=== PATIENT | male | born 1965 | race American Indian/Alaskan Native ===

== ENCOUNTER 2016-11-14 15:20 | Inpatient (IN) | payer BC ==
--- NOTE | 2016-11-14 16:50 | Cat Scan Report ---
FINAL REPORT PROCEDURE: CT HEAD/BRAIN WO CON TECHNIQUE: Computerized tomography of the head was performed without contrast material. HISTORY: neuro deficits \T\lt; 6hrs or sx present upon awakening COMPARISON: Head CT dated January 14, 2015 FINDINGS: The visualized portions of the paranasal sinuses are clear. Mastoid air cells are clear. There is no calvarial fracture. There is no hydrocephalus. No acute intracranial hemorrhage or mass effect is seen. There is no evidence of acute CVA. IMPRESSION: No abnormalities are seen.
[2016-11-14 17:14] LABS: Basophils % (Auto) 0.5 % (0.0-1.8); Eosinophils % (Auto) 0.6 % (0.0-4.3); Hematocrit 41.8 % (35.5-45.6); Hemoglobin 13.6 gm/dl (11.8-15.2); Mean Corpuscular HGB Conc 33 % (32-34); Mean Corpuscular Hemoglobin 31 pg (28-32); Mean Corpuscular Volume 94 fl (84-94); Platelet Count 160 K/mm3 (140-440); Red Blood Count 4.44 M/mm3 (3.65-5.03); Red Cell Distribution Width 13.5 % (13.2-15.2); White Blood Count 8.6 K/mm3 (4.5-11.0)
[2016-11-14 17:26] LABS: INR 1.03 (0.87-1.13)
[2016-11-14 17:27] LABS: Partial Thromboplastin Time 26.4 Sec. (24.2-36.6)
[2016-11-14 17:31] LABS: Anion Gap 17 mmol/L; Blood Urea Nitrogen 15 mg/dL (9-20); Calcium 9.1 mg/dL (8.4-10.2); Carbon Dioxide 26 mmol/L (22-30); Glucose 110 mg/dL (75-100); Potassium 4.4 mmol/L (3.6-5.0); Sodium 140 mmol/L (137-145)
[2016-11-14] MEDS ORDERED: TYLENOL ONE (20:31)
[2016-11-14] MEDS ORDERED: TYLENOL PO ONE (20:37)
[2016-11-14] MEDS ORDERED: ASPIRIN PO ONE (22:08)
--- NOTE | 2016-11-14 22:12 | Emergency Department Report ---
HPI - General Chief Complaint: Neuro Symptoms/Deficit Time Seen by Provider: 11/14/16 21:47 - HPI HPI: Chapa 22 The patient is a 81-year-old male presenting with a chief complaint of right- sided numbness and dysarthria. The patient states he awakened this morning at approximately 05:30 in his usual state of health. Patient states at approximately 10:00 this morning he developed numbness of the right face, right upper extremity and right lower extremity associated with dysarthria. Symptoms last approximately 10 minutes and then resolved. The patient states he's had 3- 4 episodes the same symptoms today. Patient denies dysphagia. Patient does admit to a headache. Location: [see above] Duration: [see above] Quality: Numbness Severity: Moderate Modifying factors: [see above] Context: [see above] Mode of transportation: [not driving] ED Past Medical Hx - Past Medical History Previous Medical History?: Yes Hx Hypertension: Yes Hx CVA: Yes (TIA) - Surgical History Past Surgical History?: Yes Additional Surgical History: Right wrist, Hernia repair - Family History Family history: no significant - Social History Smoking Status: Never Smoker Substance Use Type: None, Prescribed - Medications Home Medications: Home Medications Medication Instructions Recorded Confirmed Last Taken Type Lisinopril 0 mg PO DAILY 01/14/15 01/14/15 Unknown History HCTZ 0 10/10/15 Unknown History Famotidine [Pepcid] 20 mg PO BID #60 tablet 10/11/15 Unknown Rx Ibuprofen [Motrin] 400 mg PO Q8H PRN #30 tablet 10/11/15 Unknown Rx ED Review of Systems ROS: Stated complaint: NUMBNESS/TINGLING RT ARM/ HEADACHE Other details as noted in HPI Comment: All other systems reviewed and negative Constitutional: denies: chills, fever Eyes: denies: eye pain, eye discharge, vision change ENT: denies: ear pain, throat pain Respiratory: denies: cough, shortness of breath, wheezing Cardiovascular: denies: chest pain, palpitations Endocrine: no symptoms reported Gastrointestinal: denies: abdominal pain, nausea, diarrhea Genitourinary: denies: urgency, dysuria Musculoskeletal: denies: back pain, joint swelling, arthralgia Skin: denies: rash, lesions Neurological: headache, weakness, numbness Psychiatric: denies: anxiety, depression Hematological/Lymphatic: denies: easy bleeding, easy bruising Physical Exam - Physical Exam Vital Signs: Vital Signs 11/14/16 11/14/16 11/14/16 16:21 20:22 20:38 Temperature 98.7 F 97.7 F Pulse Rate 54 L 51 L Respiratory 20 18 18 Rate Blood Pressure 127/90 158/103 Blood Pressure [Left] O2 Sat by Pulse 98 99 Oximetry 11/14/16 11/14/16 21:13 21:14 Temperature Pulse Rate 50 L Respiratory 16 16 Rate Blood Pressure Blood Pressure 172/117 [Left] O2 Sat by Pulse 100 Oximetry Physical Exam: GENERAL: The patient is well-developed well-nourished male lying on stretcher not appearing to be in acute distress. [] HEENT: Normocephalic. Atraumatic. Extraocular motions are intact. Patient has moist mucous membranes. NECK: Supple. Trachea midline CHEST/LUNGS: Clear to auscultation. There is no respiratory distress noted. HEART/CARDIOVASCULAR: Regular. There is no tachycardia. There is no gallop rub or murmur. ABDOMEN: Abdomen is soft, nontender. Patient has normal bowel sounds. There is no abdominal distention. SKIN: There is no rash. There is no edema. There is no diaphoresis. NEURO: The patient is awake, alert, and oriented. The patient is cooperative. The patient has no focal neurologic deficits. The patient has normal speech. Cranial nerves II through XII grossly intact, no drift, video production assistant 5+5 bilaterally. Normal sensation throughout MUSCULOSKELETAL: There is no evidence of acute injury. ED Course Vital Signs 11/14/16 11/14/16 11/14/16 16:21 20:22 20:38 Temperature 98.7 F 97.7 F Pulse Rate 54 L 51 L Respiratory 20 18 18 Rate Blood Pressure 127/90 158/103 Blood Pressure [Left] O2 Sat by Pulse 98 99 Oximetry 11/14/16 11/14/16 21:13 21:14 Temperature Pulse Rate 50 L Respiratory 16 16 Rate Blood Pressure Blood Pressure 172/117 [Left] O2 Sat by Pulse 100 Oximetry ED Medical Decision Making - Lab Data Result diagrams: 11/14/16 16:59 11/14/16 16:59 Laboratory Tests 11/14/16 11/14/16 11/14/16 16:59 16:59 16:59 WBC 8.6 RBC 4.44 Hgb 13.6 Hct 41.8 MCV 94 MCH 31 MCHC 33 RDW 13.5 Plt Count 160 Lymph % (Auto) 25.3 Upson % (Auto) 8.7 H Eos % (Auto) 0.6 Baso % (Auto) 0.5 Lymph # 2.2 Upson # 0.8 Eos # 0.1 Baso # 0.0 Seg Neutrophils % 64.9 Seg Neutrophils # 5.6 PT 13.4 INR 1.03 APTT 26.4 Thrombin Time Sodium 140 Potassium 4.4 Chloride 101.0 Carbon Dioxide 26 Anion Gap 17 BUN 15 Creatinine 1.0 Estimated GFR > 60 BUN/Creatinine Ratio 15.00 Glucose 110 H Calcium 9.1 Troponin T < 0.010 11/14/16 16:59 WBC RBC Hgb Hct MCV MCH MCHC RDW Plt Count Lymph % (Auto) Upson % (Auto) Eos % (Auto) Baso % (Auto) Lymph # Upson # Eos # Baso # Seg Neutrophils % Seg Neutrophils # PT INR APTT Thrombin Time 17.2 Sodium Potassium Chloride Carbon Dioxide Anion Gap BUN Creatinine Estimated GFR BUN/Creatinine Ratio Glucose Calcium Troponin T - EKG Data -: EKG Interpreted by Or EKG shows normal: sinus rhythm Rate: bradycardia - EKG Data When compared to previous EKG there are: no significant change (86 bpm) Interpretation: unchanged when compared t (10/11/2015) - Differential Diagnosis TIA, CVA, complex migraine Critical care attestation.: If time is entered above; I have spent that time in minutes in the direct care of this critically ill patient, excluding procedure time. ED Disposition Clinical Impression: Headache, TIA (transient ischemic attack) Disposition: OP ADMITTED IP TO THIS HOSP Is pt being admited?: Yes Does the pt Need Aspirin: Yes Condition: Fair Referrals: SUZANNE BONNER MD [Primary Care Provider] - 3-5 Days Time of Disposition: 22:13 (hospitalist paged)
[2016-11-14] MEDS ORDERED: ZOFRAN IV PRN (23:50)
[2016-11-14] MEDS ORDERED: DULCOLAX PR PRN (23:50)
[2016-11-14] MEDS ORDERED: APRESOLINE IV PRN (23:50)
[2016-11-14] MEDS ORDERED: TYLENOL PO PRN (23:50)
[2016-11-14] MEDS ORDERED: SODIUM CHLORIDE FLUSH SYRINGE 10 ML IV PRN (23:50)
[2016-11-14] MEDS ORDERED: MILK OF MAGNESIA PO PRN (23:50)
--- NOTE | 2016-11-14 23:53 | History and Physical Report ---
History of Present Illness Date of examination: 11/14/16 History of present illness: 51-year-old man with a history of hypertension comes emergency room after developing numbness on the right side of the face and also on the right side of the body, symptoms started today and have improved significantly. Also complained of slurred speech which has resolved Patient denies chest pain, palpitation, shortness of breath, cough, abdominal pain, hematochezia, dysuria, frequency, focal weakness, fever chills, polydipsia polyuria, hot or cold intolerance, easy bruisability, or rash or bleeding from mucosal membrane, rhinorrhea, epistaxis, earache, tinnitus, blurry vision, eye discharge, anxiety, depression. Other review of systems negative PAST SURGICAL HISTORY:Wrist surgery SOCIAL HISTORY: Denies alcohol, tobacco, drugs FAMILY HISTORY:Hypertension Medications and Allergies Allergies Allergy/AdvReac Type Severity Reaction Status Date / Time No Known Allergies Allergy Unverified 01/14/15 00:58 Home Medications Medication Instructions Recorded Confirmed Last Taken Type Lisinopril/Hydrochlorothiazide 1 tab PO QDAY 11/14/16 11/14/16 11/14/16 History [Zestoretic 20-12.5 mg] Exam - Physical Exam Narrative exam: Gen. appearance: Patient lying in bed, no apparent distress HEENT: Normocephalic, atraumatic, pupils equally round and reactive to light, extraocular movement intact, and no sclericterus,. No JVD or thyromegaly or nodule,neck supple, no carotid bruit ,mucous membranes moist, no exudate or erythema Heart: S1, S2, regular rate and rhythm Lungs: Clear to auscultation bilaterally, breathing comfortable Abdomen: Positive bowel sounds, nontender, nondistended, no organomegaly Extremity: No edema, cyanosis, clubbing Skin: No rash, nodules, warm, dry Neuro: Oriented 3, cranial nerves II-12 intact, speech is fluent, motor and sensory intact - Constitutional Vitals: Temp Pulse Resp BP Pulse Ox 97.7 F 50 L 16 172/117 100 11/14/16 20:22 11/14/16 21:13 11/14/16 21:14 11/14/16 21:13 11/14/16 21:13 Results - Labs CBC & Chem 7: 11/14/16 16:59 11/14/16 16:59 Labs: Abnormal lab results 11/14/16 11/14/16 Range/Units 16:59 16:59 [place] % (Auto) 8.7 H (0.0-7.3) % Glucose 110 H (75-100) mg/dL - Imaging and Cardiology EKG: image reviewed CT Scan - head: report reviewed Assessment and Plan TIA Hypertension Admit to medicine Obtain MRI of the head, echo, carotid Doppler Start aspirin, IV hydralazine as needed for blood pressure control Consult neurology, PT Do neurochecks, swallow screen, DVT prophylaxis
--- NOTE | 2016-11-15 02:04 | Admit Criteria Form ---
Admission Criteria Documentation: TRANSIENT ISCHEMIC ATTACK (TIA) Clinical Indications for Admission to Inpatient Care (Place 'X' for any and all applicable criteria): Admission is indicated for ANY ONE of the following(1)(2)(3)(4)(5): [ ]I. Immediate inpatient procedure is needed (eg, endarterectomy). [X ]II. Inpatient admission required rather than observation care (Also use Transient Ischemic Attack (TIA): Observation Care Criteria as appropriate) because of ANY ONE of the following: [ X]a) Focal neurologic signs or symptoms persist or recurring [ ]b) Cardiac arrhythmias of immediate concern [ ]c) Clinically significant cardiac disorder identified that requires inpatient care (eg, severe valvular disease, atrial myxoma, cardiomyopathy) [ ]d) Hypertension requiring inpatient treatment [ ]e) Parenteral anticoagulation required (eg, alternative forms of anticoagulation not appropriate or not feasible) as indicated by ALL of the following(13): [ ]i) Temporary subtherapeutic anticoagulation unacceptable because of high risk of short-term venous or arterial thromboembolism due to ANY ONE of the following(14)(15)(16): [ ]1) Atrial fibrillation suspected as etiology of TIA(17)(18)(19)(20)(21) [ ]2) Venous thromboembolism within past 12 months [ ]3) Underlying malignancy [ ]4) Patient with mechanical cardiac valve(22)( 23) [ ]5) Underlying hypercoagulable state (eg, protein C or protein S deficiency antithrombin deficiency, antiphospholipid antibodies) [ ]6) Patient at temporary high risk of thromboembolism (eg, status post orthopedic surgery) [ ]ii) Contraindications to outpatient use of "bridging" agent or alternative oral anticoagulant[B] as indicated by ALL of the following: [ ]1) Contraindication to outpatient use of low- molecular-weight heparin as "bridging" agent as indicated by ANY ONE of the following(15): [ ]A. Documented current or history of heparin-induced thrombocytopenia(24) [ ]B. Severe thrombocytopenia (eg, platelet count less than 50,000/mm3 (96x802/L) [ ]C. Documented allergy to heparin, low- molecular-weight heparin, or pork products [ ]D. Renal failure (creatinine clearance less than 30 mL/min/1.73m2 (0.50mL/sec/1.73m2) or on dialysis) [ ]E. Inability to manage self-injection ( eg, by patient, caregiver, or visiting nurse) [ ]2) Contraindication to outpatient use of fondaparinux as "bridging" agent as indicated by ANY ONE of the following(25)(26 )(27)(28): [ ]A. Severe thrombocytopenia (eg, platelet count less than 50,000/mm3 (50 x109/L)) [ ]B.Hypersensitivity to fondaparinux, related drugs, or product components [ ]C.Renal failure (creatinine clearance less than 30 mL/min/1.73m2 (0.50mL/sec/1.73m2) or on dialysis) [ ]D.Inability to manage self-injection ( eg, by patient, caregiver, or visiting nurse [ ]3. Oral direct thrombin inhibitor (eg, dabigatran) or oral coagulation factor Xa inhibitor (eg, rivaroxaban, apixaban) not appropriate as oral anticoagulation (eg, indication not appropriate) or contraindicated (eg, hypersensitivity, creatinine clearance less than 15 mL/min/1.73m2 ( 0.25 mL/sec/1.73m2) or on dialysis). [ ]f) Continuous IV infusion of anticoagulant, platelet inhibitor, vasoactive or antiarrhythmia(18)(19) [ ]g) Other condition, treatment, or monitoring requiring inpatient admission [ ]III. Contraindications and/or Inappropriate clinical situations for Observational Care in patients with Transient Ischemic Attack (TIA), when ANY ONE of the following is required: [ ]a) Patient with persistent or severe neurological deficit 24 [ ]b) Patient with acute CVA or other identified pathology should be admitted to inpatient for further care 25 [ ]IV. General contraindications and/or Inappropriate clinical situations for Observational Care in patients with Transient Ischemic Attack (TIA), when ANY ONE of the following is required: [ ]a) Prediction of prolongation of LOS based on ANY ONE of the following may be considered as a contraindication for observational care 2, 3, 4, 5, 6, 7, 8, 9, 10, 11 [ ]i) Age > 65 yrs. [ ]ii) Patient arriving by ambulance [ ]iii) Patient with high acuity [ ]iv) Patient requiring vital sign monitoring [ ]v) Patient on IV medication [ ]b) Systolic blood pressures 180mmHg 3,12 [ ]c) Patient with altered mental status including delirium and other alteration of consciousness, (3) [ ]d) Patient whose discharge disposition will be to a [facility] home or rehabilitation home should not be managed in Emergency Department Observation Unit. CMS rule requires 3 days hospital stay before such placement.3,13 [ ]e) Patient with failure to thrive due to broad array of etiologies 3,16,17 [ ]f) Inability to ambulate 3,14 Extended stay beyond goal length of stay may be needed for(4)(30)(32): [ ]a) Parenteral anticoagulation required [ ]b) Dangerous arrhythmia [ ]c) Cardiac valvular disorder, atrial myxoma, cardiomyopathy [ ]d) Uncontrolled severe hypertension [ ]e) Severe carotid stenosis [ ]f) Active comorbidities (eg, heart failure) [ ]g) Extracranial vertebrobasilar disease(29) [ ]h) Clinical evolution of TIA into cerebrovascular accident (stroke) The original [email or web address] content created by [email or web address] has been revised. The portions of thecontent which have been revised are identified through the use of italic text or in bold, and [facility] has neither reviewed nor approved the modified material. All other unmodified content is copyright [employer] includes the [facility] [employer]. Please see references footnoted in the original [employer] [facility] the [facility] edition 2016 Admission Criteria Met: Yes
--- NOTE | 2016-11-15 09:15 | Magnetic Resonance Report ---
MRI OF THE BRAIN WITHOUT CONTRAST: HISTORY: CVA PROCEDURE: Multiplanar, multisequence MR imaging of the brain without IV contrast was performed. FINDINGS: The brain parenchyma signal intensity and its perales white interface are within normal limits on all sequences. No evidence for acute ischemia, hemorrhage or mass. No chronic infarct or extra-axial fluid collection. The midline structures are central. The basal cisterns are patent. Normal ventricular size. The orbital cavities and sella turcica demonstrate no abnormality. The visualized paranasal sinuses and mastoid air cells are well aerated. IMPRESSION: Unremarkable non-enhanced MRI of the brain. No significant change since 01/14/15.
[2016-11-15] MEDS ORDERED: LOVENOX SUB-Q SCH (10:00)
[2016-11-15] MEDS ORDERED: ASPIRIN PO SCH (10:00)
--- NOTE | 2016-11-15 10:32 | Discharge Summary ---
Providers - Providers Date of Admission: 11/14/16 23:50 Date of discharge: 11/15/16 Attending physician: GLENDY YAÑEZ 11/15/16 01:18 Consult to Physician [CONS] Routine Consulting Provider: SUSHANT PICKETT Reason For Exam: thigh abscess Notified:: clerk secretary pl call Primary care physician: SUZANNE BONNER Hospitalization Condition: Stable Hospital course: Pt is 51 yo man with htn who presented with headaches, right sided numbness which resolved. He was diagnosis with TIA. He seen neurologist Dr. Sushant Pickett. - NO tia or cva, symptoms related to migraines. - HTN - new diagnosis of dyslipidemia Disposition: DISCHARGED TO HOME OR SELFCARE Time spent for discharge: 32 minutes Core Measure Documentation - Palliative Care Palliative Care/ Comfort Measures: Not Applicable - Core Measures Any of the following diagnoses?: none - VTE Discharge Requirements Deep Vein Thrombosis/Pulmonary Embolism Present on Admission: No Has pt received <5 days of overlap therapy or INR<2.0: No Anticoagulant overlap therapy prescribed at discharge: No Contraindication No Overlap Therapy order at DC: Not Indicated Exam - Physical Exam Narrative exam: GEN: WDWN, NAD, AWAKE, ALERT, ORIENTATED x 3 HEENT: NCAT, PERRL, EOMI, OP CLEAR NECK: SUPPLE, NO THYROMEGALY, NO JVD, NO LAD CVS: RRR, NORMAL S1S2 LUNGS/CHEST: CTA B, NORMAL CHEST EXPANSION B, GOOD AIR ENTRY B ABD: SOFT NTND, GBS, NO REBOUND OR GUARDING EXT/SKIN: NO SIGNIFICANT EDEMA OR RASH MSK: FROM X 4 EXTREMITIES NEURO: CN 2-12 GROSSLY INTACT, NO FOCAL DEFICITS PSY: CALM - Constitutional Vitals: Temp Pulse Resp BP Pulse Ox 98.4 F 66 18 156/103 97 11/15/16 09:32 11/15/16 09:32 11/15/16 09:32 11/15/16 09:32 11/15/16 09:32 Plan Activity: other (no strenous activites until cleared by PCP. ) Diet: low salt Follow up with: SUZANNE BONNER MD [Primary Care Provider] - 3-5 Days Prescriptions: Simvastatin [Zocor TAB] 20 mg PO QHS #30 tablet Esomeprazole Magnesium [NexIUM] 20 mg PO QDAY #30 cap Ibuprofen [Motrin 800 MG tab] 800 mg PO Q8HR PRN #30 tablet PRN Reason: Headache Lisinopril/Hydrochlorothiazide [Zestoretic 20-12.5 mg] 1 tab PO QDAY #30 tablet methylPREDNISolone [Medrol Dose Yasir] 1 dose PO DAILY #1 pack
--- NOTE | 2016-11-15 11:03 | Consultation ---
History of Present Illness Consult date: 11/15/16 Requesting physician: GLENDY YAÑEZ Reason for Consult: TIA Chief complaint: R sided numbness/tingling History of present illness: 51 YO M Hx reported TIA but neg prior imaging w/u and HTN who p/w identical recurrent sx to prior Dx TIA. On 11/14 @ 10 AM he noted R facial tingling and numbness that progressed to involve the R face and arm arm over 15-20 mins. Sx gradually resolved but then he developed a holocranial pulsatile GÓMEZ assoc w/ photophobia. Duration of pain is constant waxing and waning. Pain is worsened by activity and and relieved by rest. There are no clear temporal factors. Severity is such to limit ability to function comfortably. Past History Past Medical History: hypertension, other (? TIA) Past Surgical History: No surgical history Social history: , lives with family. denies: smoking, alcohol abuse, prescription drug abuse, IV drug use Family history: hypertension Medications and Allergies Allergies Allergy/AdvReac Type Severity Reaction Status Date / Time No Known Allergies Allergy Unverified 01/14/15 00:58 Home Medications Medication Instructions Recorded Confirmed Last Taken Type Esomeprazole Magnesium [NexIUM] 20 mg PO QDAY #30 cap 11/15/16 Unknown Rx Ibuprofen [Motrin 800 MG tab] 800 mg PO Q8HR PRN #30 tablet 11/15/16 Unknown Rx Lisinopril/Hydrochlorothiazide 1 tab PO QDAY #30 tablet 11/15/16 Unknown Rx [Zestoretic 20-12.5 mg] Simvastatin [Zocor TAB] 20 mg PO QHS #30 tablet 11/15/16 Unknown Rx methylPREDNISolone [Medrol Dose 1 dose PO DAILY #1 pack 11/15/16 Unknown Rx Yasir] Active Meds: Active Medications Acetaminophen (Tylenol) 650 mg PO Q4H PRN PRN Reason: Pain, Mild (1-3) Last Admin: 11/15/16 10:17 Dose: 650 mg Acetaminophen/Butalbital/Caffeine (Fioricet) 2 tab PO Q4H PRN PRN Reason: Headache Aspirin (Aspirin) 325 mg PO QDAY YEYO Last Admin: 11/15/16 10:17 Dose: 325 mg Bisacodyl (Dulcolax) 10 mg NE QDAY PRN PRN Reason: Constipation Dexamethasone (Decadron) 8 mg IV ONCE ONE Stop: 11/15/16 10:53 Enoxaparin Sodium (Lovenox) 40 mg SUB-Q QDAY YEYO Last Admin: 11/15/16 10:18 Dose: 40 mg Hydralazine HCl (Apresoline) 5 mg IV Q6H PRN PRN Reason: Keep SBP between 160-185 mm Hg Ketorolac Tromethamine (Toradol) 30 mg IV ONCE ONE Stop: 11/15/16 10:54 Magnesium Hydroxide (Milk Of Magnesia) 30 ml PO Q4H PRN PRN Reason: Constipation Ondansetron HCl (Zofran) 4 mg IV Q8H PRN PRN Reason: N/V unrelieved by Reglan Simvastatin (Zocor) 20 mg PO QHS [facility] Sodium Chloride (Sodium Chloride Flush Syringe 10 Ml) 10 ml IV PRN PRN PRN Reason: LINE FLUSH Review of Systems All systems: negative Neurological: parathesias, numbness, tingling, headaches, no seizures, no syncope, no ataxia, no aphasia, no change in speech, no change in mentation, no confusion, no changes in smell/taste, no balance difficulties, no gait dysfunction, no motor disturbance, no sensory deficit, no loss of vision, no paralysis Physical Examination - Vital Signs Vital Signs: Vital Signs Temp Pulse Resp BP Pulse Ox 98.7 F 54 L 20 127/90 98 11/14/16 16:21 11/14/16 16:21 11/14/16 16:21 11/14/16 16:21 11/14/16 16:21 - Constitutional General appearance: comfortable - EENT EENT: Present: ATNC, PERRL, mucous membranes moist, hearing intact, vision intact - Respiratory Respiratory: Present: chest non-tender, normal breath sounds, no respiratory distress - Cardiovascular Cardiovascular: Present: regular rate Extremities: Present: no peripheral edema bilatateraly, no clubbing, cyanosis, no inflammation, no ischemia or petechiae - Gastrointestinal Gastrointestinal: Present: normoactive bowel sounds, soft, non-distended - Integumentary Integumentary: Present: normal - Neurologic Cranial nerve examination: PERRL, EOMI, VFF, V1/V2/V3 grossly intact, face symmetric, intact, intact shoulder shrug, intact cough reflex, Intact Vestibulo- ocular r, intact corneal reflex, normal palatal elevation Speech examination: intact Sensorimotor examination: intact Detailed motor examination: full strength in all denise Motor examination - right side: 5/5: biceps, triceps, wrist flexion, wrist extension, director of collections, hip flexors, knee extensors, dorsiflexion, toe extension (EHL) , plantarflexion Motor examination - left side: 5/5: biceps, triceps, wrist flexion, wrist extension, director of collections, hip flexors, knee extensors, dorsiflexion, toe extension (EHL) , plantarflexion Detailed sensory examination: intact, light touch, temperature Reflex and gait examination: intact Reflexes: 2+: ankle, bicep, knee, tricep - Musculoskeletal Musculoskeletal: Present: no fluid collection, no pain, normal range of motion - Psychiatric Psychiatric: Present: mood/affect appropriate, cooperative Results - Laboratory Findings CBC and BMP: 11/14/16 16:59 11/14/16 16:59 Abnormal Lab Findings: Abnormal Labs 11/15/16 04:47 Cholesterol 202 H LDL Cholesterol Direct 136 H Assessment and Plan 51 YO M Hx reported TIA but neg prior imaging w/u and HTN who p/w identical recurrent sx to prior Dx TIA w/ migratory R facial and arm progressive paresthesias/hypoesthesia followed by holocranial pulsatile GÓMEZ assoc w/ photophobia. Syn suspicious for classic migraine rather than TIA. MRI Brain neg. Prior MRA Head/CDs also neg. Plan and Recommendations: 1. Neuro checks 2. YANNA Protocol-Decadron 10mg IV x 1 and cont Medrol Dose Yasir, 3. Analgesia PRN: Toradol 15-30mg IV Q4-6hrs prn and Fioricet 1-2 tabs Q4-6hrs prn 4. Reduce MAPs by 10-15% daily to achieve normotension 5. Outpt neuro follow up 6. No neurologic contraindicaton to discharge if remains stable
[2016-11-15] MEDS ORDERED: FIORICET PO PRN (12:00)
[2016-11-15] MEDS ORDERED: DECADRON IV ONE (12:00)
[2016-11-15] MEDS ORDERED: TORADOL IV ONE (12:00)
[2016-11-15 16:43] VITALS: BP 128/80
[2016-11-15] MEDS ORDERED: ZOCOR PO SCH (22:00)
--- NOTE | 2016-11-17 22:05 | Vascular Lab Report ---
CAROTID DUPLEX STUDY: RIGHT PSVEDV CCA PROX:9521 CCA DIST:5523 ICA PROX:4920 ICA MID:6432 ICA DIST:4320 ECA: 62 VERT: 36 17 LEFT PSVEDV CCA PROX:7128 CCA DIST:5726 ICA PROX:4213 ICA MID:6222 ICA DIST:5431 ECA: 62 VERT: 33 12 REASON FOR EXAM: Stroke. COMMENTS ON THE RIGHT: Doppler frequency analysis is consistent with 16 to 49 percent diameter reduction of the internal carotid artery. Minimal amount of plaque is seen. The common carotid artery is patent. The external carotid artery is patent. The vertebral artery has antegrade flow. COMMENTS ON THE LEFT: Doppler frequency analysis is consistent with 16 to 49 percent diameter reduction of the internal carotid artery. Minimal amount of plaque is seen. The common carotid artery is patent. The external carotid artery is patent. The vertebral artery has antegrade flow. IMPRESSION: Less than 50% diameter reduction in the internal carotid arteries bilaterally. Consider repeat carotid artery duplex in 12 months.
== END 2016-11-15 16:08 | disposition home or self-care (01) | DRG 103 ==
LOC: ED 15:20 → 4A 23:50
PROVIDERS: ADMIT Internal Medicine; ATTEND Internal Medicine
DX: G43.909 Migraine, unspecified, not intractable, without status migrainosus (principal); I10 Essential (primary) hypertension; E78.5 Hyperlipidemia, unspecified; Z96.631 Presence of right artificial wrist joint; Z82.49 Family history of ischemic heart disease and other diseases of the circulatory system; Z86.73 Personal history of transient ischemic attack (TIA), and cerebral infarction without residual deficits; Z79.899 Other long term (current) drug therapy
CPT/HCPCS: 36415; 70450; 70551; 80048; 80061; 84484; 85025; 85610; 85670; 85730; 93005; 93010; 93880; J0360; J1100; J1650; J1885

== ENCOUNTER 2017-05-24 18:57 | Emergency (ER) | payer OTHER, BC ==
[2017-05-24] MEDS ORDERED: TYLENOL ONE (19:24)
[2017-05-24] MEDS ORDERED: TYLENOL PO ONE (19:25)
[2017-05-24 19:27] VITALS: BP 112/70
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
== END 2017-05-24 21:21 | disposition home or self-care (01) ==
LOC: ED 18:57
DX: S16.1XXA Strain of muscle, fascia and tendon at neck level, initial encounter (principal); S39.012A Strain of muscle, fascia and tendon of lower back, initial encounter; I10 Essential (primary) hypertension; Z86.73 Personal history of transient ischemic attack (TIA), and cerebral infarction without residual deficits; V49.49XA Driver injured in collision with other motor vehicles in traffic accident, initial encounter; Y93.89 Activity, other specified; Y92.89 Other specified places as the place of occurrence of the external cause; Y99.8 Other external cause status
CPT/HCPCS: 72100; 99283

== ENCOUNTER 2017-06-04 18:12 | Emergency (ER) | payer BC, OTHER ==
[2017-06-04 19:25] VITALS: BP 139/97
[2017-06-04] MEDS ORDERED: NORCO 7.5/325 PO ONE (23:20)
[2017-06-04] MEDS ORDERED: TORADOL IM ONE (23:20)
--- NOTE | 2017-06-04 23:57 | Emergency Department Report ---
ED General Adult HPI - General Chief complaint: Rectal Pain Stated complaint: HEMORRHOIDS Source: patient Mode of arrival: Ambulatory Limitations: No Limitations - History of Present Illness Initial comments: 51 year old male presents to ED with hemorrhoidal pain during BM x2 weeks. patient states he began having pain after constant straining from constipation. patient states he has noticed scant amount of blood on toilet tissue after wiping. patient states his Last BM was last night. patient is stable, neurologically intact and in no acute distress. -: Gradual, week(s) (2) Location: buttocks Radiation: non-radiation Quality: sharp Consistency: constant Improves with: none Worsens with: other (bowel movement) Associated Symptoms: denies other symptoms - Related Data Previous Rx's Medication Instructions Recorded Last Taken Type Esomeprazole Magnesium [NexIUM] 20 mg PO QDAY #30 cap 11/15/16 Unknown Rx Ibuprofen [Motrin 800 MG tab] 800 mg PO Q8HR PRN #30 tablet 11/15/16 Unknown Rx Lisinopril/Hydrochlorothiazide 1 tab PO QDAY #30 tablet 11/15/16 Unknown Rx [Zestoretic 20-12.5 mg] Simvastatin [Zocor TAB] 20 mg PO QHS #30 tablet 11/15/16 Unknown Rx methylPREDNISolone [Medrol Dose 1 dose PO DAILY #1 pack 11/15/16 Unknown Rx Yasir] Cyclobenzaprine [Flexeril] 10 mg PO TID PRN #30 tablet 05/24/17 Unknown Rx Naproxen [Naprosyn TAB] 500 mg PO BID PRN #30 tablet 05/24/17 Unknown Rx Docusate Sodium [Colace] 100 mg PO BID PRN #14 capsule 06/05/17 Unknown Rx Hydrocortisone/Pramoxine 1 applicatio RC QAM #1 tube 06/05/17 Unknown Rx [Proctofoam-Hc Foam] Meloxicam 7.5 mg PO QAM #7 tablet 06/05/17 Unknown Rx Allergies Allergy/AdvReac Type Severity Reaction Status Date / Time No Known Allergies Allergy Unverified 01/14/15 00:58 ED Review of Systems ROS: Stated complaint: HEMORRHOIDS Other details as noted in HPI Constitutional: denies: chills, fever Eyes: denies: eye pain, eye discharge, vision change ENT: denies: ear pain, throat pain Respiratory: denies: cough, shortness of breath, wheezing Cardiovascular: denies: chest pain, palpitations Endocrine: no symptoms reported Gastrointestinal: constipation. denies: abdominal pain, nausea, diarrhea Genitourinary: denies: urgency, dysuria Musculoskeletal: denies: back pain, joint swelling, arthralgia Skin: denies: rash, lesions Neurological: denies: headache, weakness, paresthesias Psychiatric: denies: anxiety, depression Hematological/Lymphatic: denies: easy bleeding, easy bruising ED Past Medical Hx - Past Medical History Previous Medical History?: Yes Hx Hypertension: Yes Hx CVA: Yes (TIA) Hx Congestive Heart Failure: No Hx Diabetes: No Hx Asthma: No Hx COPD: No - Surgical History Past Surgical History?: Yes Additional Surgical History: Right wrist, Hernia repair - Social History Smoking Status: Never Smoker Substance Use Type: None - Medications Home Medications: Home Medications Medication Instructions Recorded Confirmed Last Taken Type Esomeprazole Magnesium [NexIUM] 20 mg PO QDAY #30 cap 11/15/16 Unknown Rx Ibuprofen [Motrin 800 MG tab] 800 mg PO Q8HR PRN #30 tablet 11/15/16 Unknown Rx Lisinopril/Hydrochlorothiazide 1 tab PO QDAY #30 tablet 11/15/16 Unknown Rx [Zestoretic 20-12.5 mg] Simvastatin [Zocor TAB] 20 mg PO QHS #30 tablet 11/15/16 Unknown Rx methylPREDNISolone [Medrol Dose 1 dose PO DAILY #1 pack 11/15/16 Unknown Rx Yasir] Cyclobenzaprine [Flexeril] 10 mg PO TID PRN #30 tablet 05/24/17 Unknown Rx Naproxen [Naprosyn TAB] 500 mg PO BID PRN #30 tablet 05/24/17 Unknown Rx Docusate Sodium [Colace] 100 mg PO BID PRN #14 capsule 06/05/17 Unknown Rx Hydrocortisone/Pramoxine 1 applicatio RC QAM #1 tube 06/05/17 Unknown Rx [Proctofoam-Hc Foam] Meloxicam 7.5 mg PO QAM #7 tablet 06/05/17 Unknown Rx ED Physical Exam - General Limitations: No Limitations General appearance: alert, in no apparent distress - Head Head exam: Present: atraumatic, normocephalic - Eye Eye exam: Present: normal appearance - ENT ENT exam: Present: mucous membranes moist - Neck Neck exam: Present: normal inspection - Respiratory Respiratory exam: Present: normal lung sounds bilaterally. Absent: respiratory distress - Cardiovascular Cardiovascular Exam: Present: regular rate, normal rhythm. Absent: systolic murmur, diastolic murmur, rubs, gallop - GI/Abdominal GI/Abdominal exam: Present: soft, normal bowel sounds. Absent: distended, tenderness, guarding - Rectal Rectal exam: Present: normal rectal tone, hemorrhoids (internal, no signs of prolapse), tenderness (inside anal canal). Absent: black stool - Extremities Exam Extremities exam: Present: normal inspection - Back Exam Back exam: Present: normal inspection - Neurological Exam Neurological exam: Present: alert, oriented X3, normal gait - Psychiatric Psychiatric exam: Present: normal affect, normal mood - Skin Skin exam: Present: warm, dry, intact, normal color. Absent: rash ED Course Vital Signs 06/04/17 19:22 Temperature 97.5 F L Pulse Rate 66 Respiratory 18 Rate Blood Pressure 139/97 O2 Sat by Pulse 97 Oximetry ED Medical Decision Making - Medical Decision Making 51 year old male presents to ED with hemorrhoidal pain x2 weeks. patient states he has pain with BM. patient will be given hemorrhoidal medications and referral to GI for further evaluation. patient is stable, neurologically intact and in no acute distress. Critical care attestation.: If time is entered above; I have spent that time in minutes in the direct care of this critically ill patient, excluding procedure time. ED Disposition Clinical Impression: Internal hemorrhoids without complication Disposition: DC-01 TO HOME OR SELFCARE Is pt being admited?: No Does the pt Need Aspirin: No Condition: Stable Instructions: Hemorrhoids (ED) Additional Instructions: Please use OTC sitz bath and warm water for soaking. Please follow up with GI within 2-3 days. Prescriptions: Docusate Sodium [Colace] 100 mg PO BID PRN #14 capsule PRN Reason: Constipation Hydrocortisone/Pramoxine [Proctofoam-Hc Foam] 1 applicatio RC QAM #1 tube Meloxicam 7.5 mg PO QAM #7 tablet Referrals: VLAD LOPEZ MD [Staff Physician] - 2-3 Days TERRELL LOMAS MD [Staff Physician] - 2-3 Days ROBERTO RICH MD [Staff Physician] - 2-3 Days Forms: Work/School Release Form(ED)
== END 2017-06-05 00:25 | disposition home or self-care (01) ==
LOC: ED 18:12
DX: K64.8 Other hemorrhoids (principal); I10 Essential (primary) hypertension; Z86.73 Personal history of transient ischemic attack (TIA), and cerebral infarction without residual deficits
CPT/HCPCS: 96372; 99282; J1885

== ENCOUNTER 2017-12-01 06:35 | Emergency (ER) | payer BC ==
[2017-12-01] MEDS ORDERED: DILAUDID IV ONE (08:26)
[2017-12-01] MEDS ORDERED: ZOFRAN ODT PO ONE (08:28)
--- NOTE | 2017-12-01 08:29 | Emergency Department Report ---
ED GI Bleed HPI - General Chief complaint: Rectal Pain Stated complaint: HEMRRHOID PAIN Time Seen by Provider: 12/01/17 08:08 Source: patient, family Mode of arrival: Ambulatory Limitations: No Limitations - History of Present Illness Initial comments: This is a 52-year-old male here complaining of hemorrhoid pain with blood 4 days and using Preparation H with no relief. Patient was here in May 2017 for similar problems and was treated with hemorrhoid medication. Patient said he had to episode of bleeding and he is in bleed in on and off since then May 2018. Patient does have a primary care physician but has not followed up in a while. He has not had a colonoscopy at 50 years old. Pain is 10 out of 10 and feels sore worse with sitting and in walk-in is lying on his side. He said he did not take any medication for pain. Blood pressure is 146/107 and is on blood pressure medication which he said he took today he's asymptomatic with elevated blood pressure. He said his last BM was yesterday and it had large amount of blood that was bright red. Denies any black tarry stool. Denies any abdominal or back pain. Denies any urinary burning frequency or urgency. Denies any hematuria. Patient was here and was referred to apparatus lineman in May which she did not follow-up. Denies any fever or chills. MD complaint: blood on toilet paper, blood streaked stool, other (rectal pain) Onset/Timin -: month(s) Radiation: none Severity scale (0 -10): 10 Quality: other (sore) Consistency: intermittent Improves with: rest, other (after bowel movement) Worsens with: bowel movement Associated Symptoms: other (hard stool). denies: abdominal pain, nausea, vomiting, epistaxis, fever/chills, headaches, loss of appetite, malaise, easy bruising, rash, other bleeding, shortness of breath, syncope, weakness Treatments Prior to Arrival: topical ointment - Related Data Home Medications Medication Instructions Recorded Confirmed Last Taken Lovastatin [Altoprev] 20 mg PO QPM 12/01/17 12/01/17 11/30/17 Previous Rx's Medication Instructions Recorded Last Taken Type Lisinopril/Hydrochlorothiazide 1 tab PO QDAY #30 tablet 11/15/16 11/30/17 Rx [Zestoretic 20-12.5 mg] Acetaminophen/Codeine [Tylenol 1 tab PO Q6H PRN #12 tab 12/01/17 Unknown Rx /Codeine # 3 tab] Bisacodyl [Dulcolax suppos] 10 mg MN QDAY 2 Days #2 supp.rect 12/01/17 Unknown Rx Bisacodyl [Dulcolax] 10 mg PO DAILY PRN 2 Days #4 tab 12/01/17 Unknown Rx Docusate Sodium [Colace] 100 mg PO BID 30 Days #60 capsule 12/01/17 Unknown Rx Allergies Allergy/AdvReac Type Severity Reaction Status Date / Time No Known Allergies Allergy Unverified 01/14/15 00:58 ED Review of Systems ROS: Stated complaint: HEMRRHOID PAIN Other details as noted in HPI Comment: All other systems reviewed and negative Constitutional: no symptoms reported Eyes: denies: eye pain, vision change ENT: denies: ear pain, throat pain, epistaxis Respiratory: no symptoms reported Cardiovascular: denies: chest pain, palpitations, dyspnea on exertion, edema, syncope, paroxysmal nocturnal dyspnea Gastrointestinal: constipation, hematochezia, other (port hemorrhoids). denies : abdominal pain, nausea, vomiting, diarrhea, hematemesis, melena Genitourinary: denies: urgency, dysuria, frequency, hematuria, discharge Musculoskeletal: denies: back pain, arthralgia, myalgia Skin: denies: rash Neurological: denies: headache, numbness, paresthesias, confusion, abnormal gait , vertigo ED Past Medical Hx - Past Medical History Previous Medical History?: Yes Hx Hypertension: Yes Hx CVA: Yes (TIA) Hx Congestive Heart Failure: No Hx Diabetes: No Hx Asthma: No Hx COPD: No - Surgical History Past Surgical History?: Yes Additional Surgical History: Right wrist, Hernia repair - Family History Family history: hypertension - Social History Smoking Status: Never Smoker Substance Use Type: None - Medications Home Medications: Home Medications Medication Instructions Recorded Confirmed Last Taken Type Lisinopril/Hydrochlorothiazide 1 tab PO QDAY #30 tablet 11/15/16 12/01/17 Rx [Zestoretic 20-12.5 mg] Acetaminophen/Codeine [Tylenol 1 tab PO Q6H PRN #12 tab 12/01/17 Unknown Rx /Codeine # 3 tab] Bisacodyl [Dulcolax suppos] 10 mg MN QDAY 2 Days #2 supp.rect 12/01/17 Unknown Rx Bisacodyl [Dulcolax] 10 mg PO DAILY PRN 2 Days #4 tab 12/01/17 Unknown Rx Docusate Sodium [Colace] 100 mg PO BID 30 Days #60 capsule 12/01/17 Unknown Rx Lovastatin [Altoprev] 20 mg PO QPM 12/01/17 12/01/17 11/30/17 History ED Physical Exam - General Limitations: No Limitations General appearance: alert, in no apparent distress - Head Head exam: Present: atraumatic, normocephalic, normal inspection - Eye Eye exam: Present: normal appearance, PERRL, EOMI. Absent: periorbital swelling , periorbital tenderness Pupils: Present: normal accommodation - ENT ENT exam: Present: normal exam, normal orophraynx, mucous membranes moist, TM's normal bilaterally, normal external ear exam - Neck Neck exam: Present: normal inspection, full ROM. Absent: tenderness, meningismus, lymphadenopathy - Respiratory Respiratory exam: Present: normal lung sounds bilaterally. Absent: respiratory distress, chest wall tenderness, accessory muscle use - Cardiovascular Cardiovascular Exam: Present: regular rate, normal rhythm, normal heart sounds. Absent: systolic murmur, diastolic murmur - GI/Abdominal GI/Abdominal exam: Present: soft. Absent: distended, tenderness, guarding, rebound, rigid, normal bowel sounds, organomegaly, mass, bruit, pulsatile mass, hernia - Rectal Rectal exam: Present: normal inspection, normal rectal tone, heme (+) stool. Absent: decreased rectal tone, black stool, fecal impaction, hemorrhoids, mass, tenderness - Extremities Exam Extremities exam: Present: normal inspection, full ROM, normal capillary refill , other (no clubbing, cyanosis or edema. +2 pulses all extremities and no neurovascular compromise). Absent: tenderness, pedal edema, joint swelling, calf tenderness - Back Exam Back exam: Present: normal inspection, full ROM, other (Ambulates without any difficulties). Absent: tenderness, CVA tenderness (R), CVA tenderness (L), muscle spasm, paraspinal tenderness, vertebral tenderness, rash noted - Neurological Exam Neurological exam: Present: alert, oriented X3, normal gait - Psychiatric Psychiatric exam: Present: normal affect, normal mood - Skin Skin exam: Present: warm, dry, intact, normal color. Absent: rash ED Course Vital Signs 12/01/17 12/01/17 12/01/17 06:35 08:46 10:01 Temperature 97.7 F 97.6 F Pulse Rate 56 L 50 L Respiratory 20 18 16 Rate Blood Pressure 146/107 Blood Pressure 150/91 [Left] O2 Sat by Pulse 97 96 Oximetry - Reevaluation(s) Reevaluation #1: 12/01/17 11:42 Patient received Dilaudid 1 mg IV, Zofran 8 mg ODT and normal saline 1 L. Pain has been relieved. Patient vital signs are stable at present 12/01/17 11:43 ED Medical Decision Making - Lab Data Result diagrams: 12/01/17 08:47 12/01/17 08:47 Lab Results 12/01/17 12/01/17 12/01/17 Range/Units 08:47 08:47 08:47 WBC 5.1 (4.5-11.0) K/mm3 RBC 4.46 (3.65-5.03) M/mm3 Hgb 14.1 (11.8-15.2) gm/dl Hct 40.9 (35.5-45.6) % MCV 92 (84-94) fl MCH 32 (28-32) pg MCHC 34 (32-34) % RDW 13.3 (13.2-15.2) % Plt Count 146 (140-440) K/mm3 Lymph % (Auto) 37.1 H (13.4-35.0) % Castro % (Auto) 8.0 H (0.0-7.3) % Eos % (Auto) 2.7 (0.0-4.3) % Baso % (Auto) 1.1 (0.0-1.8) % Lymph # 1.9 (1.2-5.4) K/mm3 Castro # 0.4 (0.0-0.8) K/mm3 Eos # 0.1 (0.0-0.4) K/mm3 Baso # 0.1 (0.0-0.1) K/mm3 Seg Neutrophils % 51.1 (40.0-70.0) % Seg Neutrophils # 2.6 (1.8-7.7) K/mm3 PT 11.8 L (12.2-14.9) Sec. INR 0.83 L (0.87-1.13) APTT 28.1 (24.2-36.6) Sec. Sodium 139 (137-145) mmol/L Potassium 3.9 (3.6-5.0) mmol/L Chloride 101.7 (98-107) mmol/L Carbon Dioxide 25 (22-30) mmol/L Anion Gap 16 mmol/L BUN 15 (9-20) mg/dL Creatinine 0.8 (0.8-1.5) mg/dL Estimated GFR > 60 ml/min BUN/Creatinine Ratio 19 % Glucose 99 (75-100) mg/dL Calcium 9.0 (8.4-10.2) mg/dL Magnesium 2.00 (1.7-2.3) mg/dL Total Bilirubin 0.30 (0.1-1.2) mg/dL Direct Bilirubin < 0.2 (0-0.2) mg/dL AST 23 (5-40) units/L ALT 28 (7-56) units/L Alkaline Phosphatase 49 (35-129) units/L Ammonia (25-60) umol/L Total Protein 7.4 (6.3-8.2) g/dL Albumin 4.4 (3.9-5) g/dL Albumin/Globulin Ratio 1.5 % Urine Color (Yellow) Urine Turbidity (Clear) Urine pH (5.0-7.0) Ur Specific [place] (1.003-1.030) Urine Protein (Negative) mg/dL Urine Glucose (UA) (Negative) mg/dL Urine Ketones (Negative) mg/dL Urine Blood (Negative) Urine Nitrite (Negative) Ur Reducing Substances Urine Bilirubin (Negative) Urine Ictotest Urine Urobilinogen (<2.0) mg/dL Ur Leukocyte Esterase (Negative) Urine WBC (Auto) (0.0-6.0) /HPF Urine RBC (Auto) (0.0-6.0) /HPF U Epithel Cells (Auto) (0-13.0) /HPF Urine Mucus /HPF Blood Type Antibody Screen 12/01/17 12/01/17 12/01/17 Range/Units 08:47 08:48 10:23 WBC (4.5-11.0) K/mm3 RBC (3.65-5.03) M/mm3 Hgb (11.8-15.2) gm/dl Hct (35.5-45.6) % MCV (84-94) fl MCH (28-32) pg MCHC (32-34) % RDW (13.2-15.2) % Plt Count (140-440) K/mm3 Lymph % (Auto) (13.4-35.0) % Castro % (Auto) (0.0-7.3) % Eos % (Auto) (0.0-4.3) % Baso % (Auto) (0.0-1.8) % Lymph # (1.2-5.4) K/mm3 Castro # (0.0-0.8) K/mm3 Eos # (0.0-0.4) K/mm3 Baso # (0.0-0.1) K/mm3 Seg Neutrophils % (40.0-70.0) % Seg Neutrophils # (1.8-7.7) K/mm3 PT (12.2-14.9) Sec. INR (0.87-1.13) APTT (24.2-36.6) Sec. Sodium (137-145) mmol/L Potassium (3.6-5.0) mmol/L Chloride (98-107) mmol/L Carbon Dioxide (22-30) mmol/L Anion Gap mmol/L BUN (9-20) mg/dL Creatinine (0.8-1.5) mg/dL Estimated GFR ml/min BUN/Creatinine Ratio % Glucose (75-100) mg/dL Calcium (8.4-10.2) mg/dL Magnesium (1.7-2.3) mg/dL Total Bilirubin (0.1-1.2) mg/dL Direct Bilirubin (0-0.2) mg/dL AST (5-40) units/L ALT (7-56) units/L Alkaline Phosphatase (35-129) units/L Ammonia 40.0 (25-60) umol/L Total Protein (6.3-8.2) g/dL Albumin (3.9-5) g/dL Albumin/Globulin Ratio % Urine Color Yellow (Yellow) Urine Turbidity Clear (Clear) Urine pH 6.0 (5.0-7.0) Ur Specific [place] 1.057 H (1.003-1.030) Urine Protein <15 mg/dl (Negative) mg/dL Urine Glucose (UA) Neg (Negative) mg/dL Urine Ketones Neg (Negative) mg/dL Urine Blood Neg (Negative) Urine Nitrite Neg (Negative) Ur Reducing Substances Not Reportable Urine Bilirubin Neg (Negative) Urine Ictotest Not Reportable Urine Urobilinogen < 2.0 (<2.0) mg/dL Ur Leukocyte Esterase Neg (Negative) Urine WBC (Auto) 2.0 (0.0-6.0) /HPF Urine RBC (Auto) 1.0 (0.0-6.0) /HPF U Epithel Cells (Auto) < 1.0 (0-13.0) /HPF Urine Mucus Few /HPF Blood Type A POSITIVE Antibody Screen Negative Stool for occult blood positive - Radiology Data Radiology results: report reviewed The skin of the abdomen and pelvis with IV contrast revealed small sliding hiatal hernia. No acute abdominal findings. Normal kidneys and bladder. Gaseous colon with stool in colon. Stool in rectum. No evidence of appendicitis or diverticulitis or bowel distention. Normal liver, spleen, pancreas and gallbladder. - Medical Decision Making ED course: Presented to the emergency room complaining of rectal pain and bleeding on and off since 05/25/2017. He was seen in the emergency room in May 2017 and was treated for hemorrhoids and referred to discern serologies which she did not follow up. Patient does have primary care physician which she does not do follow-up visit with on a regular basis. Patient is 52 years old and has not had a colonoscopy. Laboratory results are stable please refer to laboratory section for detail. CT scan of the abdomen and pelvis stable except for Constipation. CT scan and lab results. Patient voiced understanding. I also discussed with him that he needs to follow up with his primary care: Call Sunday to schedule appointment and also see referral for apparatus lineman for colonoscopy. Patient was given 1 L of normal saline and emergency room, hemoglobin and hematocrit is stable, Dilaudid 100 mg IV and Zofran 8 mg ODT which relieved his pain. Blood pressure is stabilized. Rectal exam done and no external or internal hemorrhoids on examination. No autumn bleeding the positive Hemoccult. Diagnosis and treatment plan along with follow -up explained to patient and he voiced understanding. Patient discharged home with his with prescription for Dulcolax tablets, Dulcolax suppository, Tylenol No. 3 with Colace. Patient was understanding that he needs to follow- up to get a colonoscopy to rule out any kind of abnormality in his colon due to rectal bleeding. Critical care attestation.: If time is entered above; I have spent that time in minutes in the direct care of this critically ill patient, excluding procedure time. ED Disposition Clinical Impression: Rectal bleed, Rectum pain, Elevated blood pressure reading with diagnosis of hypertension Constipation Qualifiers: Constipation type: unspecified constipation type Qualified Code(s): K59.00 - Constipation, unspecified Disposition: - TO HOME OR SELFCARE Is pt being admited?: No Does the pt Need Aspirin: No Condition: Stable Instructions: Hypertension (ED), Colonoscopy (GEN), Rectal Bleeding (ED), Constipation (ED), High Fiber Diet (ED) Additional Instructions: Please see referral to [facility] apparatus lineman for colonoscopy. Please call and Sunday to schedule an appointment Follow-up your primary care physician and call Sunday to schedule an appointment See discharge instructions on constipation and high fiber diet Increase her fluid intake to 2-3 L of water daily If you're rectal bleeding increases, dizziness, nausea vomiting and abdominal pain, Return to emergency room You were here in June and was referred to a apparatus lineman and primary care which she did not follow up with. You need a colonoscopy to rule out any abnormalities in your colon, Which could include colon cancer. Prescriptions: Acetaminophen/Codeine [Tylenol /Codeine # 3 tab] 1 tab PO Q6H PRN #12 tab PRN Reason: rectal pain Bisacodyl [Dulcolax] 10 mg PO DAILY PRN 2 Days #4 tab PRN Reason: Constipation Bisacodyl [Dulcolax suppos] 10 mg MN QDAY 2 Days #2 supp.rect Docusate Sodium [Colace] 100 mg PO BID 30 Days #60 capsule Referrals: PRIMARY CARE, [Primary Care Provider] - 12/03/17 [facility] [Provider Group] - 12/03/17 Forms: Accompanied Note, Work/School Release Form(ED)
[2017-12-01 09:09] LABS: Basophils # (Auto) 0.1 K/mm3 (0.0-0.1); Basophils % (Auto) 1.1 % (0.0-1.8); Eosinophils # (Auto) 0.1 K/mm3 (0.0-0.4); Eosinophils % (Auto) 2.7 % (0.0-4.3); Hematocrit 40.9 % (35.5-45.6); Hemoglobin 14.1 gm/dl (11.8-15.2); Lymphocytes # (Auto) 1.9 K/mm3 (1.2-5.4); Lymphocytes % (Auto) 37.1 % (13.4-35.0); Mean Corpuscular HGB Conc 34 % (32-34); Mean Corpuscular Hemoglobin 32 pg (28-32); Mean Corpuscular Volume 92 fl (84-94); Monocytes # (Auto) 0.4 K/mm3 (0.0-0.8); Platelet Count 146 K/mm3 (140-440); Red Blood Count 4.46 M/mm3 (3.65-5.03); Red Cell Distribution Width 13.3 % (13.2-15.2)
[2017-12-01 09:17] LABS: INR 0.83 (0.87-1.13); Partial Thromboplastin Time 28.1 Sec. (24.2-36.6)
[2017-12-01 09:21] LABS: Alanine Aminotransferase 28 units/L (7-56); Albumin 4.4 g/dL (3.9-5); BUN/Creatinine Ratio 19; Blood Urea Nitrogen 15 mg/dL (9-20); Hemolysis Index 3
[2017-12-01 09:22] LABS: Bilirubin,Direct < 0.2 mg/dL (0-0.2)
[2017-12-01] MEDS ORDERED: NACL 0.9% 1000 ML 1,000 ML ONE (09:31)
[2017-12-01] MEDS ORDERED: NACL 0.9% 1000 ML 1,000 ML IV ONE (09:32)
[2017-12-01] MEDS ORDERED: NACL ONE (09:36)
--- NOTE | 2017-12-01 10:09 | Cat Scan Report ---
CT scan of abdomen and pelvis with IV contrast: History: GI bleed and rectal pain. Findings: Normal lung bases. No pleural pericardial effusion. Small sliding hiatal hernia. Normal liver spleen pancreas and gallbladder. Normal adrenals kidneys and bladder. No free intraperitoneal fluid or air. No evidence of adenopathy. Normal aorta. Gaseous colon with stool in colon. Stool in rectum. No evidence of appendicitis or diverticulitis or bowel distention. Impression: Small sliding hiatal hernia. No acute abdominal findings.
[2017-12-01 11:16] LABS: Mucus,Urine FEW /HPF
[2017-12-01 11:18] LABS: Bilirubin,Urine NEG (Negative); Blood,Urine NEG (Negative); Color,Urine Yellow (Yellow); Protein,Urine <15 mg/dL mg/dL (Negative); Urobilinogen,Urine < 2.0 mg/dL (<2.0)
[2017-12-01 12:30] VITALS: BP 169/117
== END 2017-12-01 12:30 | disposition home or self-care (01) ==
LOC: ED 06:35
DX: K62.5 Hemorrhage of anus and rectum (principal); K59.00 Constipation, unspecified; I10 Essential (primary) hypertension
CPT/HCPCS: 36415; 74177; 80048; 80074; 81001; 82140; 83735; 85025; 85610; 85730; 86850; 86900; 86901; 96361; 96374; 99284; J1170; J7030; Q9967; Q0162

== ENCOUNTER 2019-09-03 14:57 | Emergency (ER) | payer BC ==
--- NOTE | 2019-09-03 15:14 | Event Note ---
ED Screening Note ED Screening Note: Mr. Mayers is a HTN, TIA, dyslipidemia who presents with trouble speaking and right sided numbness and right leg weakness. Symptoms off and on for one week. Began 10 am today. This initial assessment/diagnostic orders/clinical plan/treatment(s) is/are subject to change based on patients health status, clinical progression and re- assessment by fellow clinical providers in the ED. Further treatment and workup at subsequent clinical providers discretion. Patient/guardian urged not to elope from the ED as their condition may be serious if not clinically assessed and managed. Initial orders include: stroke protocol
--- NOTE | 2019-09-03 15:37 | Cat Scan Report ---
CT head without contrast INDICATION : Right sided numbness, history of TIA. TECHNIQUE: Axial imaging performed from the skull apex through the skull base without the use of con trast. All CT scans at this location are performed using CT dose reduction for ALARA by means of aut omated exposure control. COMPARISON: 11/15/2016, 11/14/2016. FINDINGS: Parenchyma: No acute intracranial hemorrhage or parenchymal abnormality. Ventricles: Ventricles are normal in size and appear symmetric. Soft tissues: Soft tissues including the orbits appear normal. Bones: No acute osseous abnormality. Sinuses: Sinuses and mastoid air cells are clear. IMPRESSION: No evidence of acute intracranial abnormality. If there is strong clinical suspicion for acute infarc t, an MRI would be recommended. These findings were discussed with Dr. Stark at 14:30 on 09/03/2019. Signer Name: Phi Gimenez MD Signed: 09/03/2019 3:33 PM Workstation Name: [id number]
[2019-09-03 15:40] LABS: Basophils # (Auto) 0.1 K/mm3 (0.0-0.1); Eosinophils # (Auto) 0.1 K/mm3 (0.0-0.4); Eosinophils % (Auto) 2.2 % (0.0-4.3); Hematocrit 42.3 % (35.5-45.6); Hemoglobin 14.2 gm/dl (11.8-15.2); Lymphocytes # (Auto) 2.2 K/mm3 (1.2-5.4); Lymphocytes % (Auto) 37.2 % (13.4-35.0); Mean Corpuscular HGB Conc 34 % (32-34); Mean Corpuscular Volume 94 fl (84-94); Monocytes # (Auto) 0.5 K/mm3 (0.0-0.8); Monocytes % (Auto) 8.3 % (0.0-7.3); Platelet Count 127 K/mm3 (140-440); Red Blood Count 4.51 M/mm3 (3.65-5.03); Red Cell Distribution Width 13.5 % (13.2-15.2)
--- NOTE | 2019-09-03 15:41 | Emergency Department Report ---
ED Neuro Deficit HPI - General Chief Complaint: Neuro Symptoms/Deficit Stated Complaint: NUMBINESS, RIGHT SIDE FACE, ARM, LEG Time Seen by Provider: 09/03/19 15:35 Source: patient Mode of arrival: Ambulatory Limitations: No Limitations - History of Present Illness Initial Comments: [facility] Date of Service: 09/03/2019 15:16:13 Impression: RO Acute Ischemic Stroke Comments: Patient is a 53 years old man with history of HTN and HLD who presents to the ED c/o dysarthria, headache, and right side numbness/weakness. NIHSS is 4. Non contrast CTH shows no acute findings. Presentation is concerning for acute stroke, small vessel etiology. He is outside the window for IV tPA. Recommend admission for further work-up. Mechanism of Stroke: Small Vessel Disease Metrics: Last Known Well: 09/03/2019 10:00:00 [facility] Notification Time: 09/03/2019 15:15:00 Arrival Time: 09/03/2019 12:53:00 Stamp Time: 09/03/2019 15:16:13 Time First Login Attempt: 09/03/2019 15:22:25 Video Start Time: 09/03/2019 15:22:25 Symptoms: Headache, slurred speech, and right side numbness NIHSS Start Assessment Time: 09/03/2019 15:23:34 Patient is not a candidate for tPA. Patient was not deemed candidate for tPA thrombolytics because of Last Well Known Above 4.5 Hours. Video End Time: 09/03/2019 15:36:13 CT head showed no acute hemorrhage or acute core infarct. Presentation is not suggestive of Large Vessel Occlusive disease. Advanced imaging was not obtained as the presentation was not suggestive of Large Vessel Occlusive Disease. ED Physician notified of diagnostic impression and management plan on 09/03/2019 15:36:14 Our recommendations are outlined below. Recommendations: Activate Stroke Protocol Admission/Order Set Stroke/Telemetry Floor Neuro Checks Bedside Swallow Eval DVT Prophylaxis IV Fluids, Normal Saline Head of Bed Below 30 Degrees Euglycemia and Avoid Hyperthermia (PRN Acetaminophen) Antiplatelet Therapy Recommended Recommended Scan: MRI Head Without Contrast MRA Head Without Contrast Carotid Dopplers Echocardiogram - Transthoracic Echocardiogram Lipid Panel to Be Obtained, if Not Done in the Last Three Months Therapies: Physical Therapy, Occupational Therapy, Speech Therapy Assessment When Applicable Dysphaghia Screen: Swallow Evaluation, Bedside Disposition: Follow up with Teleneurology Follow up Sign Out: Discussed with Emergency Department Provider History of Present Illness: Patient is a 53 year old Male. Patient was brought by private transportation with symptoms of Headache, slurred speech, and right side numbness Patient is a who presents to the ED c/o headache, right side numbness/weakness and slurred speech since 10:00am. Symptoms have remained constant since onset. No prior history of stroke. PMHx of HLD and HTN. CT head showed no acute hemorrhage or acute core infarct. Last seen normal was beyond 4.5 hours of presentation. There is no history of hemorrhagic complications or intracranial hemorrhage. There is no history of Recent Anticoagulants. There is no history of recent major surgery. There is no history of recent stroke. Examination: BP(165/102), 1A: Level of Consciousness - Alert; keenly responsive + 0 1B: Ask Month and Age - Both Questions Right + 0 1C: Blink Eyes & Squeeze Hands - Performs Both Tasks + 0 2: Test Horizontal Extraocular Movements - Normal + 0 3: Test Visual Ba - No Visual Loss + 0 4: Test Facial Palsy (Use Grimace if Obtunded) - Normal symmetry + 0 5A: Test Left Arm Motor Drift - No Drift for 10 Seconds + 0 5B: Test Right Arm Motor Drift - Drift, but doesn't hit bed + 1 6A: Test Left Leg Motor Drift - No Drift for 5 Seconds + 0 6B: Test Right Leg Motor Drift - Drift, but doesn't hit bed + 1 7: Test Limb Ataxia (FNF/Heel-Muñoz) - No Ataxia + 0 8: Test Sensation - Mild-Moderate Loss: Less Sharp/More Dull + 1 9: Test Language/Aphasia - Normal; No aphasia + 0 10: Test Dysarthria - Mild-Moderate Dysarthria: Slurring but can be understood + 1 11: Test Extinction/Inattention - No abnormality + 0 NIHSS Score: 4 Patient was informed the Neurology Consult would happen via TeleHealth consult by way of interactive audio and video telecommunications and consented to receiving care in this manner. Due to the immediate potential for life-threatening deterioration due to underlying acute neurologic illness, I spent 35 minutes providing critical care. This time includes time for face to face visit via telemedicine, review of medical records, imaging studies and discussion of findings with providers, the patient and/or family. Dr Meagan Barrios [facility] Case [id number] - Related Data Home Medications: Home Medications Medication Instructions Recorded Confirmed Last Taken Lovastatin [Altoprev] 20 mg PO QPM 12/01/17 12/01/17 11/30/17 Previous Rx's Medication Instructions Recorded Last Taken Type Lisinopril/Hydrochlorothiazide 1 tab PO QDAY #30 tablet 11/15/16 11/30/17 Rx [Zestoretic 20-12.5 mg] Acetaminophen/Codeine [Tylenol 1 tab PO Q6H PRN #12 tab 12/01/17 Unknown Rx /Codeine # 3 tab] Docusate Sodium [Colace] 100 mg PO BID 30 Days #60 capsule 12/01/17 Unknown Rx bisacodyL [Dulcolax suppos] 10 mg FL QDAY 2 Days #2 supp.rect 12/01/17 Unknown Rx bisacodyL [Dulcolax] 10 mg PO DAILY PRN 2 Days #4 tab 12/01/17 Unknown Rx Ondansetron [Zofran Odt] 4 mg PO Q6HR PRN #12 tab.rapdis 10/25/18 Unknown Rx Allergies/Adverse Reactions: Allergies Allergy/AdvReac Type Severity Reaction Status Date / Time No Known Allergies Allergy Verified 10/25/18 14:27 ED Review of Systems ROS: Stated complaint: NUMBINESS, RIGHT SIDE FACE, ARM, LEG Other details as noted in HPI ED Past Medical Hx - Past Medical History Previous Medical History?: Yes Hx Hypertension: Yes Hx CVA: Yes (TIA) Hx Congestive Heart Failure: No Hx Diabetes: No Hx Asthma: No Hx COPD: No - Surgical History Past Surgical History?: Yes Additional Surgical History: Right wrist, Hernia repair - Social History Smoking Status: Never Smoker Substance Use Type: None - Medications Home Medications: Home Medications Medication Instructions Recorded Confirmed Last Taken Type Lisinopril/Hydrochlorothiazide 1 tab PO QDAY #30 tablet 11/15/16 12/01/17 11/30/17 Rx [Zestoretic 20-12.5 mg] Acetaminophen/Codeine [Tylenol 1 tab PO Q6H PRN #12 tab 12/01/17 Unknown Rx /Codeine # 3 tab] Docusate Sodium [Colace] 100 mg PO BID 30 Days #60 capsule 12/01/17 Unknown Rx Lovastatin [Altoprev] 20 mg PO QPM 12/01/17 12/01/17 11/30/17 History bisacodyL [Dulcolax suppos] 10 mg FL QDAY 2 Days #2 supp.rect 12/01/17 Unknown Rx bisacodyL [Dulcolax] 10 mg PO DAILY PRN 2 Days #4 tab 12/01/17 Unknown Rx Ondansetron [Zofran Odt] 4 mg PO Q6HR PRN #12 tab.rapdis 10/25/18 Unknown Rx ED Neuro Physical Exam - General Limitations: No Limitations Suspected Stroke: Yes - NIHSS Assessment Interval: Baseline 1a. Level of Consciousness: alert/keenly responsive 1b. LOC Questions: answers both correctly 1c. LOC Commands: performs tasks correctly 2. Best Gaze: normal 3. Visual: no visual loss 4. Facial Palsy: normal symmetrical movement 5b. Motor Arm Right: drift 5a. Motor Arm Left: no drift 6a. Motor Leg Left: no drift 6b. Motor Leg Right: drift 7. Limb Ataxia: absent 8. Sensory: mild/moderate sensory loss 9. Best Language: no aphasia 10. Dysarthria: mild/moderate dysarthria 11. Extinction/Inattention: no abnormality Total Score: 4 Stroke Severity: Minor Stroke ED Course Vital Signs 09/03/19 15:08 Temperature 97.7 F Pulse Rate 60 Respiratory 18 Rate Blood Pressure 130/98 O2 Sat by Pulse 100 Oximetry - Lab Data Lab Results 09/03/19 Range/Units 15:26 POC Glucose 85 (70-105) Critical Care Time: Yes (35 min) Critical care attestation.: If time is entered above; I have spent that time in minutes in the direct care of this critically ill patient, excluding procedure time. ED Disposition Clinical Impression: Stroke Disposition: OP ADMIT IP TO THIS HOSP Is pt being admited?: Yes Condition: Stable
[2019-09-03] MEDS ORDERED: diphenhydrAMINE 50 MG/ML VIAL IV ONE (15:51)
[2019-09-03] MEDS ORDERED: METOCLOPRAMIDE 10 MG/2 ML INJ IV ONE (15:51)
[2019-09-03 16:02] LABS: INR 0.84 (0.87-1.13)
[2019-09-03 16:06] LABS: Alanine Aminotransferase 23 units/L (7-56); Albumin 4.8 g/dL (3.9-5); BUN/Creatinine Ratio 13; Blood Urea Nitrogen 13 mg/dL (9-20); Calcium 9.9 mg/dL (8.4-10.2); Hemolysis Index 4
[2019-09-03 16:07] LABS: Partial Thromboplastin Time 28.5 Sec. (24.2-36.6)
[2019-09-03] MEDS ORDERED: ASPIRIN 325 MG TAB PO ONE (16:42)
--- NOTE | 2019-09-03 16:49 | Emergency Department Report ---
ED General Adult HPI - General Chief complaint: Neuro Symptoms/Deficit Stated complaint: NUMBINESS, RIGHT SIDE FACE, ARM, LEG Time Seen by Provider: 09/03/19 15:35 Source: patient Mode of arrival: Ambulatory Limitations: No Limitations - History of Present Illness Initial comments: Patient is a 53-year-old male presents emergency room with complaints of a left occipital headache that began a week ago. He states he is also had right facial, right arm, and right leg numbness and tingling. He states he is also had right-sided weakness which has also been for a week. He denies any vision changes, nausea, vomiting, speech disturbance, gait disturbance, dizziness. Past medical history of TIA, hypertension, migraines. He is not on any blood thinners. He is a nonsmoker. He denies any cardiac history, DVT history, PE history. he is on propranolol for migraines. Severity scale (0 -10): 0 - Related Data Home Medications Medication Instructions Recorded Confirmed Last Taken Lovastatin [Altoprev] 20 mg PO QPM 12/01/17 12/01/17 11/30/17 Previous Rx's Medication Instructions Recorded Last Taken Type Lisinopril/Hydrochlorothiazide 1 tab PO QDAY #30 tablet 11/15/16 11/30/17 Rx [Zestoretic 20-12.5 mg] Acetaminophen/Codeine [Tylenol 1 tab PO Q6H PRN #12 tab 12/01/17 Unknown Rx /Codeine # 3 tab] Docusate Sodium [Colace] 100 mg PO BID 30 Days #60 capsule 12/01/17 Unknown Rx bisacodyL [Dulcolax suppos] 10 mg ID QDAY 2 Days #2 supp.rect 12/01/17 Unknown Rx bisacodyL [Dulcolax] 10 mg PO DAILY PRN 2 Days #4 tab 12/01/17 Unknown Rx Ondansetron [Zofran Odt] 4 mg PO Q6HR PRN #12 tab.rapdis 10/25/18 Unknown Rx Butalb/Acetaminophen/Caffeine 1 cap PO Q8HR PRN #10 cap 09/03/19 Unknown Rx [Fioricet 50-300-40 mg CAP] SUMAtriptan SUCCINATE [Imitrex] 25 mg PO Q2HR PRN #12 tablet 09/03/19 Unknown Rx Allergies Allergy/AdvReac Type Severity Reaction Status Date / Time No Known Allergies Allergy Verified 10/25/18 14:27 ED Review of Systems ROS: Stated complaint: NUMBINESS, RIGHT SIDE FACE, ARM, LEG Other details as noted in HPI Comment: All other systems reviewed and negative ED Past Medical Hx - Past Medical History Previous Medical History?: Yes Hx Hypertension: Yes Hx CVA: Yes (TIA) Hx Congestive Heart Failure: No Hx Diabetes: No Hx Asthma: No Hx COPD: No - Surgical History Past Surgical History?: Yes Additional Surgical History: Right wrist, Hernia repair - Social History Smoking Status: Never Smoker Substance Use Type: None - Medications Home Medications: Home Medications Medication Instructions Recorded Confirmed Last Taken Type Lisinopril/Hydrochlorothiazide 1 tab PO QDAY #30 tablet 11/15/16 12/01/17 Rx [Zestoretic 20-12.5 mg] Acetaminophen/Codeine [Tylenol 1 tab PO Q6H PRN #12 tab 12/01/17 Unknown Rx /Codeine # 3 tab] Docusate Sodium [Colace] 100 mg PO BID 30 Days #60 capsule 12/01/17 Unknown Rx Lovastatin [Altoprev] 20 mg PO QPM 12/01/17 12/01/17 11/30/17 History bisacodyL [Dulcolax suppos] 10 mg ID QDAY 2 Days #2 supp.rect 12/01/17 Unknown Rx bisacodyL [Dulcolax] 10 mg PO DAILY PRN 2 Days #4 tab 12/01/17 Unknown Rx Ondansetron [Zofran Odt] 4 mg PO Q6HR PRN #12 tab.rapdis 10/25/18 Unknown Rx Butalb/Acetaminophen/Caffeine 1 cap PO Q8HR PRN #10 cap 09/03/19 Unknown Rx [Fioricet 50-300-40 mg CAP] SUMAtriptan SUCCINATE [Imitrex] 25 mg PO Q2HR PRN #12 tablet 09/03/19 Unknown Rx ED Physical Exam - General Limitations: No Limitations General appearance: alert, in no apparent distress - Head Head exam: Present: atraumatic, normocephalic - Eye Eye exam: Present: normal appearance, PERRL, EOMI - ENT ENT exam: Present: mucous membranes moist - Respiratory Respiratory exam: Present: normal lung sounds bilaterally. Absent: respiratory distress, wheezes, rales, rhonchi, stridor, chest wall tenderness, accessory muscle use, decreased breath sounds, prolonged expiratory - Cardiovascular Cardiovascular Exam: Present: regular rate, normal rhythm, normal heart sounds. Absent: systolic murmur, diastolic murmur, rubs, gallop - Neurological Exam Neurological exam: Present: alert, oriented X3, CN II-XII intact, normal gait, other (normal finger to nose, normal heel to romo, slight right sided pronator drift, right arm strength is 4/5, left arm strength 5/5, BLE muscle strength is 5/5, normal rapid alternating movement, slightly decreased sensation in the right arm, normal sensation in the face and BLE) - Psychiatric Psychiatric exam: Present: normal affect, normal mood - Skin Skin exam: Present: warm, dry, intact ED Course Vital Signs 09/03/19 09/03/19 09/03/19 15:08 15:28 15:30 Temperature 97.7 F Pulse Rate 60 Respiratory 18 Rate Blood Pressure 130/98 165/102 Blood Pressure [Left] O2 Sat by Pulse 100 97 97 Oximetry 09/03/19 09/03/19 09/03/19 15:46 16:00 16:16 Temperature Pulse Rate 56 L 54 L 59 L Respiratory 22 18 20 Rate Blood Pressure 138/95 129/93 129/93 Blood Pressure [Left] O2 Sat by Pulse 99 97 99 Oximetry 09/03/19 09/03/19 09/03/19 16:17 16:30 16:45 Temperature Pulse Rate 61 63 54 L Respiratory 23 22 17 Rate Blood Pressure 138/95 124/76 Blood Pressure 129/93 [Left] O2 Sat by Pulse 97 99 98 Oximetry 09/03/19 17:00 Temperature Pulse Rate 53 L Respiratory 15 Rate Blood Pressure 117/76 Blood Pressure [Left] O2 Sat by Pulse 100 Oximetry - Consultations Consultation #1: 09/03/19 15:36 spoke with teleneurology who recommended pt is not a TPA candidate, needs hospital admission for stroke workup to r/o small vessel occlusion, give aspirin 09/03/19 16:[address] Christian , hospitalist for admission of patient ED Medical Decision Making - Lab Data Result diagrams: 09/03/19 15:31 09/03/19 15:31 Lab Results 09/03/19 09/03/19 09/03/19 Range/Units 15:26 15:31 15:31 WBC 5.9 (4.5-11.0) K/mm3 RBC 4.51 (3.65-5.03) M/mm3 Hgb 14.2 (11.8-15.2) gm/dl Hct 42.3 (35.5-45.6) % MCV 94 (84-94) fl MCH 31 (28-32) pg MCHC 34 (32-34) % RDW 13.5 (13.2-15.2) % Plt Count 127 L (140-440) K/mm3 Lymph % (Auto) 37.2 H (13.4-35.0) % Bailey % (Auto) 8.3 H (0.0-7.3) % Eos % (Auto) 2.2 (0.0-4.3) % Baso % (Auto) 1.0 (0.0-1.8) % Lymph # 2.2 (1.2-5.4) K/mm3 Bailey # 0.5 (0.0-0.8) K/mm3 Eos # 0.1 (0.0-0.4) K/mm3 Baso # 0.1 (0.0-0.1) K/mm3 Seg Neutrophils % 51.3 (40.0-70.0) % Seg Neutrophils # 3.0 (1.8-7.7) K/mm3 PT (12.2-14.9) Sec. INR (0.87-1.13) APTT (24.2-36.6) Sec. Sodium (137-145) mmol/L Potassium (3.6-5.0) mmol/L Chloride (98-107) mmol/L Carbon Dioxide (22-30) mmol/L Anion Gap mmol/L BUN (9-20) mg/dL Creatinine (0.8-1.5) mg/dL Estimated GFR ml/min BUN/Creatinine Ratio % Glucose (75-100) mg/dL POC Glucose 85 (70-105) Calcium (8.4-10.2) mg/dL Total Bilirubin (0.1-1.2) mg/dL AST (5-40) units/L ALT (7-56) units/L Alkaline Phosphatase (35-129) units/L Troponin T < 0.010 (0.00-0.029) ng/mL Total Protein (6.3-8.2) g/dL Albumin (3.9-5) g/dL Albumin/Globulin Ratio % 09/03/19 09/03/19 Range/Units 15:31 15:45 WBC (4.5-11.0) K/mm3 RBC (3.65-5.03) M/mm3 Hgb (11.8-15.2) gm/dl Hct (35.5-45.6) % MCV (84-94) fl MCH (28-32) pg MCHC (32-34) % RDW (13.2-15.2) % Plt Count (140-440) K/mm3 Lymph % (Auto) (13.4-35.0) % Bailey % (Auto) (0.0-7.3) % Eos % (Auto) (0.0-4.3) % Baso % (Auto) (0.0-1.8) % Lymph # (1.2-5.4) K/mm3 Bailey # (0.0-0.8) K/mm3 Eos # (0.0-0.4) K/mm3 Baso # (0.0-0.1) K/mm3 Seg Neutrophils % (40.0-70.0) % Seg Neutrophils # (1.8-7.7) K/mm3 PT 11.6 L (12.2-14.9) Sec. INR 0.84 L (0.87-1.13) APTT 28.5 (24.2-36.6) Sec. Sodium 140 (137-145) mmol/L Potassium 4.0 (3.6-5.0) mmol/L Chloride 103.0 (98-107) mmol/L Carbon Dioxide 24 (22-30) mmol/L Anion Gap 17 mmol/L BUN 13 (9-20) mg/dL Creatinine 1.0 (0.8-1.5) mg/dL Estimated GFR > 60 ml/min BUN/Creatinine Ratio 13 % Glucose 103 H (75-100) mg/dL POC Glucose (70-105) Calcium 9.9 (8.4-10.2) mg/dL Total Bilirubin 0.20 (0.1-1.2) mg/dL AST 23 (5-40) units/L ALT 23 (7-56) units/L Alkaline Phosphatase 44 (35-129) units/L Troponin T (0.00-0.029) ng/mL Total Protein 8.0 (6.3-8.2) g/dL Albumin 4.8 (3.9-5) g/dL Albumin/Globulin Ratio 1.5 % - Radiology Data Radiology results: report reviewed [facility] [address] [place] [address] Cat Scan Report Signed Patient: PATRICE REYES MR#: [id number] : 1965 Acct:[id number] Age/Sex: 53 / M ADM Date: 09/03/19 Loc: ED Attending Dr: Ordering Physician: Juani Garcia MD Date of Service: 09/03/19 Procedure(s): CT head/brain wo con Accession Number(s): [id number] cc: Juani Garcia MD CT head without contrast INDICATION : Right sided numbness, history of TIA. TECHNIQUE: Axial imaging performed from the skull apex through the skull base without the use of contrast. All CT scans at this location are performed using CT dose reduction for ALARA by means of automated exposure control. COMPARISON: 11/15/2016, 11/14/2016. FINDINGS: Parenchyma: No acute intracranial hemorrhage or parenchymal abnormality. Ventricles: Ventricles are normal in size and appear symmetric. Soft tissues: Soft tissues including the orbits appear normal. Bones: No acute osseous abnormality. Sinuses: Sinuses and mastoid air cells are clear. IMPRESSION: No evidence of acute intracranial abnormality. If there is strong clinical suspicion for acute infarct, an MRI would be recommended. These findings were discussed with Dr. Stark at 14:30 on 09/03/2019. Signer Name: Phi Wise MD Signed: 09/03/2019 3:33 PM Workstation Name: [id number] Transcribed By: DERICK Dictated By: PHI WISE MD Electronically Authenticated By: PHI WISE MD Signed Date/Time: 09/03/19 1533 DD/ 1528 TD/TT: - Medical Decision Making initial NIH score is 2 Patient is a 53-year-old male presents emergency room with complaints of a left occipital headache that began a week ago. He states he is also had right facial, right arm, and right leg numbness and tingling. He states he is also had right-sided weakness which has also been for a week. He denies any vision changes, nausea, vomiting, speech disturbance, gait disturbance, dizziness. Past medical history of TIA, hypertension, migraines. He is not on any blood thinners. He is a nonsmoker. He denies any cardiac history, DVT history, PE history. he is on propranolol for migraines. VSS. labs are stable. on exam: normal finger to nose, normal heel to romo, slight right sided pronator drift, right arm strength is 4/5, left arm strength 5/5, BLE muscle strength is 5/5, normal rapid alternating movement, slightly decreased sensation in the right arm, normal sensation in the face and BLE. CT head: No evidence of acute intracranial abnormality. If there is strong clinical suspicion for acute infarct, an MRI would be recommended. spoke with teleneurology who recommended pt is not a TPA candidate, needs hospital admission for stroke workup to r/o small vessel occlusion, give aspirin. Spoke to Dr. Christian , hospitalist for admission of patient. pt given Reglan, Benadryl, aspirin and his headache improved. Patient's NIH scale is now 0, patient has no pronator drift, patient sensation is intact. Dr. Christian, hospitalist evaluated the patient at the bedside he states that patient does not have any neuro deficits, patient symptoms and examination consistent with complex migraines he states that patient has had this multiple times in the past, he states that patient should be discharged home with prescriptions for abortive migraine therapy, he advises for discharge and does not recommend inpatient workup, states pt can follow up as an outpatient, please see Dr. Christian's note. - Differential Diagnosis CVA, ICH, SDH, SAH, complex migraine, cluster GÓMEZ, tension GÓMEZ, mass Critical care attestation.: If time is entered above; I have spent that time in minutes in the direct care of this critically ill patient, excluding procedure time. ED Disposition Clinical Impression: Numbness and tingling of right arm and leg, Right arm weakness Headache Qualifiers: Headache type: unspecified Headache chronicity pattern: acute headache Intractability: not intractable Qualified Code(s): R51 - Headache Disposition: DC-01 TO HOME OR SELFCARE Is pt being admited?: No Does the pt Need Aspirin: No Condition: Stable Instructions: Migraine Headache (ED), Paresthesia (ED) Additional Instructions: Please take medication as prescribed as needed. Please continue taking propranolol. Please follow-up with a neurologist and a primary care doctor in the next 2-3 days. Return to the emergency room immediately for any new or worsening symptoms including but not limited to worsening headache, vision changes, speech changes, difficulty walking, numbness, weakness. Prescriptions: Butalb/Acetaminophen/Caffeine [Fioricet 50-300-40 mg CAP] 1 cap PO Q8HR PRN #10 cap PRN Reason: headache SUMAtriptan SUCCINATE [Imitrex] 25 mg PO Q2HR PRN #12 tablet PRN Reason: headache Referrals: KEN PIERCE MD [Referring] - 2-3 Days ROBERTO AGARWAL MD [Staff Physician] - 2-3 Days RATNA FREIRE MD [Staff Physician] - 2-3 Days LUIS CHRISTIAN MD [Staff Physician] - 2-3 Days Forms: Work/School Release Form(ED) Time of Disposition: 17:36 Print Language: TURKMEN
--- NOTE | 2019-09-03 17:07 | Event Note ---
Date: 09/03/19
[2019-09-03 17:14] VITALS: BP 117/76
== END 2019-09-03 18:02 | disposition home or self-care (01) ==
LOC: ED 14:57
DX: I63.9 Cerebral infarction, unspecified (principal); R51 Headache; R20.0 Anesthesia of skin; R20.2 Paresthesia of skin; R53.1 Weakness; I10 Essential (primary) hypertension; Z86.73 Personal history of transient ischemic attack (TIA), and cerebral infarction without residual deficits; Z79.899 Other long term (current) drug therapy
CPT/HCPCS: 36415; 70450; 80053; 82962; 84484; 85025; 85610; 85730; 96374; 96375; 99291; J1200; J2765

== ENCOUNTER 2021-10-10 05:21 | Emergency (ER) | payer BC ==
--- NOTE | 2021-10-10 06:44 | Emergency Department Report ---
ED General Adult HPI - General Chief complaint: Rectal Pain Stated complaint: RECTAL PAIN Time Seen by Provider: 10/10/21 06:21 Source: patient Mode of arrival: Ambulatory Limitations: No Limitations - History of Present Illness Initial comments: This is a 56-year-old male nontoxic, well nourished in appearance, no acute signs of distress presents to the ED with c/o of rectal pain times several days. Patient stated has a external hemorrhoid that he fell. Patient did have some bleeding occurred yesterday on one occasion. Currently denies any rectal bleeding. Patient otherwise denies any other complaints or symptoms. Patient does agree to being constipated but has taking a stool softener and had a bowel movement. Patient denies any abdominal pain, back pain, urinary symptoms, chest pain, shortness of breath, headache, stiff neck, numbness or tingling. Patient denies any nausea vomiting. Denies any allergies. -: days(s) Radiation: non-radiation Severity scale (0 -10): 2 Quality: aching Consistency: intermittent Improves with: none Worsens with: none Associated Symptoms: denies other symptoms. denies: confusion, chest pain, cough, diaphoresis, fever/chills, headaches, loss of appetite, malaise, nausea/vomiting, rash, seizure, shortness of breath, syncope, weakness - Related Data Home Medications Medication Instructions Recorded Confirmed Last Taken Lovastatin [Altoprev] 20 mg PO QPM 12/01/17 12/01/17 11/30/17 Previous Rx's Medication Instructions Recorded Last Taken Type Lisinopril/Hydrochlorothiazide 1 tab PO QDAY #30 tablet 11/15/16 11/30/17 Rx [Zestoretic 20-12.5 mg] Acetaminophen/Codeine [Tylenol 1 tab PO Q6H PRN #12 tab 12/01/17 Unknown Rx /Codeine # 3 tab] Docusate Sodium [Colace] 100 mg PO BID 30 Days #60 capsule 12/01/17 Unknown Rx bisacodyL [Dulcolax suppos] 10 mg AR QDAY 2 Days #2 supp.rect 12/01/17 Unknown Rx bisacodyL [Dulcolax] 10 mg PO DAILY PRN 2 Days #4 tab 12/01/17 Unknown Rx Ondansetron [Zofran Odt] 4 mg PO Q6HR PRN #12 tab.rapdis 10/25/18 Unknown Rx Butalb/Acetaminophen/Caffeine 1 cap PO Q8HR PRN #10 cap 09/03/19 Unknown Rx [Fioricet 50-300-40 mg CAP] SUMAtriptan SUCCINATE [Imitrex] 25 mg PO Q2HR PRN #12 tablet 09/03/19 Unknown Rx Phenylephrine HCl/[place] Butter 1 each RC DAILY PRN #1 tube 10/10/21 Unknown Rx [Preparation H Suppository] Allergies Allergy/AdvReac Type Severity Reaction Status Date / Time No Known Allergies Allergy Verified 10/25/18 14:27 ED Review of Systems ROS: Stated complaint: RECTAL PAIN Other details as noted in HPI Comment: All other systems reviewed and negative Constitutional: denies: chills, fever Eyes: denies: eye pain, eye discharge, vision change ENT: denies: ear pain, throat pain Respiratory: denies: cough, shortness of breath, wheezing Cardiovascular: denies: chest pain, palpitations Endocrine: no symptoms reported Gastrointestinal: denies: abdominal pain, nausea, diarrhea Genitourinary: denies: urgency, dysuria Musculoskeletal: denies: back pain, joint swelling, arthralgia Skin: denies: rash, lesions Neurological: denies: headache, weakness, paresthesias Psychiatric: denies: anxiety, depression Hematological/Lymphatic: denies: easy bleeding, easy bruising ED Past Medical Hx - Past Medical History Hx Hypertension: Yes Hx CVA: Yes (TIA) Hx Congestive Heart Failure: No Hx Diabetes: No Hx Asthma: No Hx COPD: No - Surgical History Additional Surgical History: Right wrist, Hernia repair - Social History Smoking Status: Never Smoker Substance Use Type: None - Medications Home Medications: Home Medications Medication Instructions Recorded Confirmed Last Taken Type Lisinopril/Hydrochlorothiazide 1 tab PO QDAY #30 tablet 11/15/16 12/01/17 11/30/17 Rx [Zestoretic 20-12.5 mg] Acetaminophen/Codeine [Tylenol 1 tab PO Q6H PRN #12 tab 12/01/17 Unknown Rx /Codeine # 3 tab] Docusate Sodium [Colace] 100 mg PO BID 30 Days #60 capsule 12/01/17 Unknown Rx Lovastatin [Altoprev] 20 mg PO QPM 12/01/17 12/01/17 11/30/17 History bisacodyL [Dulcolax suppos] 10 mg AR QDAY 2 Days #2 supp.rect 12/01/17 Unknown Rx bisacodyL [Dulcolax] 10 mg PO DAILY PRN 2 Days #4 tab 12/01/17 Unknown Rx Ondansetron [Zofran Odt] 4 mg PO Q6HR PRN #12 tab.rapdis 10/25/18 Unknown Rx Butalb/Acetaminophen/Caffeine 1 cap PO Q8HR PRN #10 cap 09/03/19 Unknown Rx [Fioricet 50-300-40 mg CAP] SUMAtriptan SUCCINATE [Imitrex] 25 mg PO Q2HR PRN #12 tablet 09/03/19 Unknown Rx Phenylephrine HCl/[place] Butter 1 each RC DAILY PRN #1 tube 10/10/21 Unknown Rx [Preparation H Suppository] ED Physical Exam - General Limitations: No Limitations General appearance: alert, in no apparent distress - Head Head exam: Present: atraumatic, normocephalic - Eye Eye exam: Present: normal appearance - Neck Neck exam: Present: normal inspection, full ROM. Absent: lymphadenopathy - Respiratory Respiratory exam: Absent: respiratory distress - Cardiovascular Cardiovascular Exam: Present: regular rate - GI/Abdominal GI/Abdominal exam: Present: soft, normal bowel sounds. Absent: distended, tenderness, guarding, rebound, rigid - Rectal Rectal exam: Present: normal inspection, normal rectal tone, hemorrhoids (External that is reducible. No bleeding. No thrombosis.). Absent: black stool, bloody stool, fecal impaction, tenderness - Extremities Exam Extremities exam: Present: full ROM - Back Exam Back exam: Present: normal inspection, full ROM. Absent: tenderness, CVA tenderness (R), CVA tenderness (L), muscle spasm, paraspinal tenderness, vertebral tenderness, rash noted - Neurological Exam Neurological exam: Present: alert, oriented X3 - Psychiatric Psychiatric exam: Present: normal affect, normal mood - Skin Skin exam: Present: warm, dry, intact, normal color. Absent: rash ED Course Vital Signs 10/10/21 05:25 Temperature 98.5 F Pulse Rate 61 Respiratory 18 Rate Blood Pressure 170/103 O2 Sat by Pulse 99 Oximetry - Reevaluation(s) Reevaluation #1: 10/10/21 06:42 Patient is speaking in full sentences with no signs of distress noted. ED Medical Decision Making - Medical Decision Making 56-year-old male that presents with external hemorrhoids. Patient is stable and was examined by me. Otherwise physical exam is unremarkable. Patient educated on sitz bath. Educated also on constipation. I will discharge patient with Preparation H. Patient was instructed to follow-up with a primary care doctor in 3-5 days or if symptoms worsen and continue return to emergency room as soon as possible. At time of discharge, the patient does not seem toxic or ill in appearance. No acute signs of distress noted. Patient agrees to discharge treatment plan of care. No further questions noted by the patient. Critical care attestation.: If time is entered above; I have spent that time in minutes in the direct care of this critically ill patient, excluding procedure time. ED Disposition Clinical Impression: Hemorrhoids Qualifiers: Hemorrhoid type: unspecified Qualified Code(s): K64.9 - Unspecified hemorrhoids Disposition: 01 HOME / SELF CARE / HOMELESS Is pt being admited?: No Does the pt Need Aspirin: No Condition: Stable Instructions: Hemorrhoids, How to Take a Sitz Bath Additional Instructions: Follow-up with a primary care doctor in 3-5 days or if symptoms worsen and continue return to emergency room as soon as possible. Prescriptions: Phenylephrine HCl/[place] Butter [Preparation H Suppository] 1 each RC DAILY PRN #1 tube PRN Reason: Hemorrhoids Referrals: PRIMARY CARE, [Referring] - 3-5 Days LETTY TURNER MD [Staff Physician] - 3-5 Days Forms: Work/School Release Form(ED) Time of Disposition: 06:44
[2021-10-10 07:26] VITALS: BP 145/96
== END 2021-10-10 07:26 | disposition home or self-care (01) ==
LOC: ED 05:21
DX: K64.9 Unspecified hemorrhoids (principal); I10 Essential (primary) hypertension; Z86.73 Personal history of transient ischemic attack (TIA), and cerebral infarction without residual deficits
CPT/HCPCS: 99282